=== PATIENT | male | born 1965 ===

== ENCOUNTER 2023-10-08 07:17 | Emergency (ER) | payer SELFPAY ==
--- NOTE | ~2023-10-08 | CT_ITS ---
EXAMINATION: CT abdomen pelvis wo con DATE: 10/08/2023 07:57 INDICATION: Left flank pain. Nausea and vomiting. TECHNIQUE: Computed tomography (CT) of the abdomen and pelvis was performed without intravenous contr ast. Automated exposure control and iterative reconstruction technique were employed. The dose-length product was 321.13 mGy-cm. COMPARISON: None. FINDINGS: The visualized portions of lung bases demonstrate mild atelectasis. No pleural effusion. Th e heart size is normal. No pericardial effusion. There is a small sliding hiatal hernia. The liver an d gallbladder, spleen, pancreas, adrenal glands, and right kidney are normal. There is mild left hydr onephrosis. There is a 4 mm stone in proximal left ureter. There are bilateral inguinal hernias conta ining fat. There are no dilated loops of bowel. The appendix is normal. There are no pathologically e nlarged lymph nodes. There is no free intraperitoneal fluid. There is a chronic burst fracture of L1. There is mild chronic anterior wedging of T12. There is moderate thoracic spondylosis and severe lum bar spondylosis. IMPRESSION: 1. 4 mm stone in proximal left ureter with mild left hydronephrosis. 2. Small sliding hiatal hernia. Reviewed, dictated and finalized at location E.
[2023-10-08 07:22] VITALS: BP 136/92; PULSE 50; RESP 16; TEMP 36.7; O2SAT 97
[2023-10-08 07:26] VITALS: BP 136/92; PULSE 50; RESP 16; TEMP 36.7; O2SAT 97
--- NOTE | 2023-10-08 07:33 | ED.ABDPAIN ---
HPI - Abdominal Pain General Chief Complaint: Urogenital-Male Stated Complaint: flank pain Time Seen by Provider: 10/08/23 07:32 Source: patient Mode of arrival: ambulatory Limitations: no limitations History of Present Illness HPI narrative: Patient is a 58-year-old male with left-sided flank pain that radiates from the back all the way to the testicles. This started at 2:00 a.m.. He has a history of kidney stones. MD elicited complaint: abdominal pain and flank pain Pertinent past history: other ( Prior kidney stones) Onset (ago): hour(s) (5) Pain Consistency: constant Location: LLQ and L flank Severity: severe Pain scale (0-10): 8 Quality: sharp Radiation: back ( left-sided lower) Migration to: LLQ and L flank Exacerbating factors: nothing Relieving factors: nothing Context: confirms other ( prior renal stones) Associated symptoms: nausea Related Data Allergies Allergy/AdvReac Type Severity Reaction Status Date / Time No Known Allergies Allergy Verified 10/08/23 07:25 Review of Systems Review of Systems: All systems reviewed & are unremarkable except as noted in HPI and below Constitutional: Constitutional: Reports no additional constitutional complaints Eyes: Eyes: Reports no additional eye complaints ENT: Reports system reviewed and no additional complaints, except as documented Cardiovascular: Cardiovascular: Reports no additional cardiovascular complaints Respiratory: Respiratory: Reports no additional respiratory complaints Gastrointestinal: Gastrointestinal: Reports no additional gastrointestinal complaints Genitourinary: Genitourinary: Reports no additional male genitourinary complaints Musculoskeletal: Musculoskeletal: Reports no additional musculoskeletal complaints Integumentary/Breasts: Skin/Breast: Reports system reviewed and no additional complaints, except as docu Neurologic: Reports system reviewed and no additional complaints, except as documented Psychiatric: Psychiatric: Reports no additional psychiatric complaints Endocrine: Endocrine: Reports no additional endocrine complaints Hematologic/Lymphatic: Hematologic/Lymphatic: Reports no additional hematologic/lymphatic complaints Allergic/Immunologic: Allergic/Immunologic: Reports no additional allergic/immunologic complaints Exam Const: General: healthy appearing Nutritional Appearance: well nourished Orientation/consciousness: patient oriented x3 HENMT: Head: normal to inspection Ears: external ears normal Face/Nose/Sinus: Normal external nose present Eyes: Conjunctivae: conjunctivae normal Pupils: Equal, round and reactive pupils present EOM: EOMs intact bilaterally Neck: Neck: normal visual inspection Chest: Chest palpation & inspection: normal inspection of the chest Resp: Effort & Inspection: normal respiratory effort and not labored Auscultation: clear to auscultation bilaterally Cardio: Rate: regular rate Rhythm: regular rhythm Heart sounds: no murmurs GI: Inspection: non-distended GI Palp: Yes Soft to palpation and No Tenderness to palpation present (GI) Auscultation: normal bowel sounds : General: Yes bladder normal to palpation Back/Spine/Pelvis: Back: no CVA tenderness Skin: General skin exam: normal color Rashes: no rashes Wounds: no wounds Neuro: General: patient oriented x3 Cranial nerves: Yes Nystagmus not present Speech: normal speech Extrem: General: normal to inspection Psych: Mental Status: mental status grossly normal Affect: normal affect Attitude: cooperative Course Vital Signs Vital signs: Vital Signs Temperature 36.7 C 10/08/23 07:22 Pulse Rate 50 L 10/08/23 07:22 Respiratory Rate 16 10/08/23 07:22 Blood Pressure 136/92 H 10/08/23 07:22 Pulse Oximetry 97 10/08/23 07:22 Oxygen Delivery Room Air 10/08/23 07:22 Temperature 36.8 C 10/08/23 08:46 Pulse Rate 63 10/08/23 08:46 Respiratory Rate 20 10/08/23 08:46 Blood Pressure 132/88
[2023-10-08] MEDS: ONDANSETRON INJ 4 MG/2 ML VIAL IV PUSH (07:42)
[2023-10-08] MEDS: KETOROLAC 30 MG/ML VIAL (*BKC) IV PUSH (07:46)
--- NOTE | 2023-10-08 07:54 | PC.NURSE ---
pt to ct for scan via wheelchair and return to room.
[2023-10-08 08:23] LABS: Basophils Absolute Auto 0.03 K/mm3 (0.00-0.10); Basophils Percent Auto 0.4 % (0.0-1.0); Eosinophils Absolute Auto 0.01 K/mm3 (0.02-0.50); Eosinophils Percent Auto 0.1 % (1.0-6.0); Hematocrit 46.8 % (40.0-54.0); Hemoglobin 15.7 g/dL (14.0-18.0); Immature Granulocyte Absolute 0.04 K/mm3 (0.00-0.00); Immature Granulocyte Percent A 0.5 % (0.0-0.0); Lymphocytes Absolute Auto 0.86 K/mm3 (1.10-4.50); Lymphocytes Percent Auto 10.7 % (18.0-42.0); Mean Corpuscular HGB Conc 33.5 g/dL (32-36); Mean Corpuscular Hemoglobin 33.1 pg (27.0-31.0); Mean Corpuscular Volume 98.7 fL (78.0-102.0); Mean Platelet Volume 9.2 fl (8.7-11.0); Monocytes Absolute Auto 0.39 K/mm3 (0.10-0.90); Monocytes Percent Auto 4.9 % (2.0-11.0); Neutrophils Absolute Auto 6.68 K/mm3 (1.70-7.20); Neutrophils Percent Auto 83.4 % (50.0-70.0); Platelet Count Result 259 K/mm3 (150-420); Red Blood Count 4.74 M/mm3 (4.70-6.10); Red Cell Distribution Width 13.2 % (11.6-14.4)
[2023-10-08 08:38] LABS: Bilirubin Urine 1+ (Negative); Blood Urine 3+ (Negative); Glucose Urine UA Negative (Negative); Ketones Urine Trace (Negative); Leukocyte Esterase Ur Negative LEU/UL (Negative); Nitrate Urine Negative (Negative); Protein Urine 2+ (Negative); Specific Grav Ur >= 1.030 (1.010-1.020)
[2023-10-08 08:40] LABS: Alanine Aminotransferase 17 U/L (16-63); Albumin Level 3.6 g/dL (3.4-5.0); Alkaline Phosphatase 92 U/L (46-116); Anion Gap 10 mmol/L (4-12); Aspartate Amino Transferase 19 U/L (15-37); Bilirubin,Total 0.4 mg/dL (0.00-1.00); Blood Urea Nitrogen 15 mg/dL (7-18); Calcium 8.7 mg/dL (8.5-10.1); Carbon Dioxide 24 mmol/L (21-32); Chloride 104 mmol/L (98-108); Estimated CRCL calculation 65 ml/min; Estimated Glomerular Filt Rate > 60; Glucose 135 mg/dL (70-99); Osmolality Calculated 288 mOsm/kg (285-295); Potassium 3.7 mmol/L (3.5-5.1); Sodium 138 mmol/L (136-145); Total Protein 7.3 g/dL (6.4-8.2)
[2023-10-08] MEDS: TAMSULOSIN HCL 0.4 MG CAPSULE PO (08:44)
[2023-10-08 08:45] LABS: Add Urine Microscopic? YES; Appearance Urine Cloudy (Clear); Color Urine Dark Yellow (Yellow); Mucus Urine Heavy /lpf; RBC Urine >75 /hpf (0-2)
--- NOTE | 2023-10-08 08:50 | PC.NURSE ---
michaeler and urinal sent with pt.
[2023-10-08 09:06] VITALS: BP 132/88; PULSE 63; RESP 20; TEMP 36.8; O2SAT 98
--- NOTE | 2023-10-08 10:51 | PC.NURSE ---
son of pt called, pt is in pain and needs medications. explained rx sent home with pt. request to call in to [facility] in [facility]. called in to yury at [facility]. informed olya also has hard copy of all rx.
== END 2023-10-08 09:06 | disposition home or self-care (01) ==
PROVIDERS: Emergency Provider Emergency Medicine
DX: N20.1 Calculus of ureter (principal)
CPT/HCPCS: 36415; 74176; 80053; 81001; 85025; 96374; 96375; 99284; A9270; J1885; J2405